=== PATIENT | male | born 1985 | race African-American/Black ===

== ENCOUNTER 2018-01-28 19:11 | Emergency (ER) | payer BC ==
[2018-01-28] MEDS ORDERED: Ketorolac Tromethamine 30 MG/ML VIAL ONE (20:03)
[2018-01-28] MEDS ORDERED: Metoclopramide HCl 10 MG/2 ML VIAL ONE (20:03)
[2018-01-28] MEDS ORDERED: Acetaminophen 500 MG TAB ONE (20:03)
== END 2018-01-28 21:26 | disposition home or self-care (01) ==
LOC: ERS 19:11
DX: R51 Headache (principal)
CPT/HCPCS: 96365; 96375; J1885; J2765

== ENCOUNTER 2018-02-24 20:30 | Emergency (ER) | payer BC ==
[2018-02-24] MEDS ORDERED: Ketorolac Tromethamine 30 MG/ML VIAL ONE (21:43)
== END 2018-02-24 22:00 | disposition home or self-care (01) ==
LOC: ERS 20:30
DX: K02.9 Dental caries, unspecified (principal)
CPT/HCPCS: 96372; J1885

== ENCOUNTER 2018-11-10 21:19 | Emergency (ER) | payer BC, SELFPAY ==
[2018-11-10] MEDS ORDERED: Ketorolac Tromethamine 60 MG/2 ML VIAL ONE (22:06)
== END 2018-11-10 22:25 | disposition home or self-care (01) ==
LOC: ERS 21:19
DX: M54.5 Low back pain (principal)
CPT/HCPCS: 96372; 99283; J1885

== ENCOUNTER 2025-01-19 15:03 | Emergency (ER) | payer SELFPAY | END 2025-01-19 17:41 | LOC: ERS 15:03 | DX: Z53.21 Procedure and treatment not carried out due to patient leaving prior to being seen by health care provider (principal) ==